=== PATIENT | male | born 1950 | race Caucasian/White ===

== ENCOUNTER 2022-03-29 07:51 | Outpatient (CLI) | payer MEDICARE, SELFPAY ==
--- NOTE | ~2022-03-29 | US_ITS ---
EXAMINATION: US aorta [facility] DATE: 03/29/2022 08:34 INDICATION: Abdominal aortic aneurysm screening. TECHNIQUE: Grayscale, color Doppler, and pulsed Doppler images of the aorta and common iliac arteries were obtained. COMPARISON: None. FINDINGS: The aorta demonstrates atherosclerosis. No aneurysm. The right common iliac artery is normal in calib er. The left common iliac artery is normal in caliber. IMPRESSION: 1. Aortic atherosclerosis. No aneurysm. Reviewed, dictated and finalized at location A. CTOR CAR OPERATOR
== END 2022-03-29 07:52 | disposition home or self-care (01) ==
PROVIDERS: PCP Family Medicine; Visit Provider Internal Medicine Cardiovascular Disease
DX: Z13.6 Encounter for screening for cardiovascular disorders (principal); I70.0 Atherosclerosis of aorta
CPT/HCPCS: 76706

== ENCOUNTER 2022-05-29 15:44 | Emergency (ER) | payer MEDICARE, SELFPAY ==
--- NOTE | ~2022-05-29 | XR_ITS ---
EXAMINATION: XR chest 2V DATE: 05/29/2022 16:15 INDICATION: Dizziness, fatigue and shoulder pain TECHNIQUE: PA and lateral views of the chest were obtained. COMPARISON: Chest radiograph dated 02/12/2017 FINDINGS: The lungs remain clear with no focal airspace opacities, pulmonary edema, pleural effusion or pneumot horax. The cardiomediastinal silhouette is normal. Median sternotomy wires and mediastinal surgical c lips are seen, likely from prior coronary artery bypass grafting. Mild anterior wedging of a couple l ower thoracic vertebral bodies. Mild thoracic spondylosis. IMPRESSION: 1. No acute cardiopulmonary disease. Reviewed, dictated and finalized at location B. DREN'S PROGRAM COORDINATOR
--- NOTE | ~2022-05-29 | CT_ITS ---
Non-contrast Head CT History: Dizziness COMPARISON: 02/12/2017 Technique: Axial non-contrast imaging of the brain was performed. Dose reduction technique was used on this scan by utilizing automated exposure control and iterative reconstruction technique. The dose -length product (DLP) was 605.33 mGy-cm. Findings: There is no evidence of intracranial hemorrhage, mass lesion, or acute infarct. Brain par enchyma appears normal. The ventricles and subarachnoid spaces are normal in size. The calvarium ap pears normal. The visualized paranasal sinuses and mastoid air cells are clear. Impression: No significant abnormality seen. Reviewed, dictated and finalized at location . ETING SERVICES REP Impression: No significant abnormality seen.
[2022-05-29 15:55] VITALS: BP 167/93; PULSE 74; RESP 16; TEMP 36.4; O2SAT 97
--- NOTE | 2022-05-29 15:56 | ECG_ITS ---
Measurements Intervals [place] Rate: 76 P: -75 ID: [id number] QRS: -52 QRSD: 101 T: 42 QT: 372 QTc: 419 Interpretive Statements ECTOPIC ATRIAL RHYTHM VENTRICULAR PREMATURE COMPLEX INFERIOR INFARCT, AGE INDETERMINATE EXTENSIVE ANTERIOR INFARCT, AGE INDETERMINATE ABNORMAL ECG NO PREVIOUS ECG AVAILABLE FOR COMPARISON Electronically Signed On 05-29-2022 16:08:33 BEAD STRINGER by Gerardo Harper D.O.
[2022-05-29 16:13] LABS: Basophils Absolute Auto 0.1 K/mm3 (0.0-0.1); Basophils Percent Auto 0.6 % (0.2-1.2); Eosinophils Absolute Auto 0.1 K/mm3 (0-0.3); Eosinophils Percent Auto 0.6 % (0-4.4); Hematocrit 44.7 % (42.0-52.0); Hemoglobin 15.3 g/dL (14.0-18.0); Immature Granulocyte Absolute 0.03 K/mm3 (0.00-0.031); Immature Granulocyte Percent A 0.3 % (0-0.5); Lymphocytes Absolute Auto 3.24 K/mm3 (0.9-3.2); Mean Corpuscular HGB Conc 34.2 g/dl (32-36); Mean Corpuscular Hemoglobin 29.6 pg (26-34); Mean Corpuscular Volume 86.5 fl (80-100); Mean Platelet Volume 9.6 fl (7.4-10.4); Monocytes Absolute Auto 0.6 K/mm3 (0.1-0.6); Monocytes Percent Auto 6.3 % (2.6-8.5); Neutrophils Absolute Auto 5.5 K/mm3 (1.3-6.7); Neutrophils Percent Auto 58.2 % (45.5-73.1); Platelet Count Result 203 k/mm3 (150-375); Red Blood Count 5.17 M/mm3 (4.6-6.20); Red Cell Distribution Width 13.8 % (11.5-14.5); White Blood Count 9.5 K/mm3 (4.5-10.0)
[2022-05-29 16:24] LABS: Alanine Aminotransferase 36 U/L (6-50); Albumin Level 4.8 g/dL (3.5-5.1); Alkaline Phosphatase 52 U/L (38-126); Anion Gap 6 mmol/L (8-16); Aspartate Amino Transferase 30 U/L (17-59); Bilirubin,Total 0.7 mg/dL (0.2-1.3); Blood Urea Nitrogen 17 mg/dL (9-20); Calcium 9.3 mg/dL (8.4-10.2); Carbon Dioxide 32 mmol/L (22-30); Chloride 97 mmol/L (98-107); Estimated CRCL calculation 82 ml/min; Estimated Glomerular Filt Rate > 60; Glucose 117 mg/dL (65-110); Lipase 36 U/L (23-300); Partial Thromboplastin Time 26.5 SECONDS (22.3-36.8); Potassium 3.7 mmol/L (3.4-5.0); Prothrombin Time 12.5 Seconds (11.1-14.7); Sodium 135 mmol/L (137-145)
[2022-05-29 16:36] LABS: Troponin I < 0.012 ng/mL (0.000-0.034)
[2022-05-29 21:04] VITALS: BP 136/75; PULSE 75; RESP 18; O2SAT 99
--- NOTE | 2022-05-29 21:06 | PC.NURSE ---
pt to the intake desk stating he feels like his blood sugar is low. pt pulled into triage and BS checked, 112. Pt eating cheez its
[2022-05-29 21:09] LABS: Glucose Point of Care 112 mg/dl (65-105)
[2022-05-29 22:39] LABS: Troponin I < 0.012 ng/mL (0.000-0.034)
[2022-05-29 23:21] VITALS: PULSE 70
[2022-05-29 23:24] VITALS: PULSE 71; RESP 14; O2SAT 100
--- NOTE | 2022-05-29 23:24 | ED.GENADULT ---
HPI - General Adult General Chief complaint: Unspecified Stated complaint: fatigue/htn/vertigo Time Seen by Provider: 05/29/22 23:17 History of Present Illness HPI narrative: Patient is a 71-year-old male here for evaluation of multiple medical complaints. Patient states that he has had generalized fatigue for the past 3 days. He also notes a rocking sensation when he closes his eyes, that he likens to being on a ship. He has had intermittent issues controlling his blood pressure, notes that his systolic was in the 150s today which prompted his ED evaluation, he tends to run in the 120s systolic. He denies any chest pain, shortness of breath, fevers or chills, unilateral weakness, visual changes, leg swelling. He does have a history of CAD status post CABG, follows with Dr. Cardozo. Related Data Allergies Allergy/AdvReac Type Severity Reaction Status Date / Time canagliflozin Allergy Unknown Verified 04/09/14 19:57 hydrochlorothiazide Allergy Unknown Verified 01/20/13 19:33 lisinopril Allergy Unknown Verified 01/20/13 15:13 Wlgyzgk-YNA-SzG Reductase Allergy Unknown Verified 01/20/13 15:12 Inhibitor [Fjkwepn-Ukw-Xiv Reductase Inhibitor] BUPROPION HCL Allergy Unknown Uncoded 02/12/17 13:32 Review of Systems Review of Systems: Gen: Reports generalized fatigue. Denies fevers or chills Eyes: Denies eye pain or visual change ENT: Reports dizziness. Denies congestion Respiratory: Denies shortness of breath or cough CV: Denies chest pain or palpitations GI: Denies abdominal pain nausea, emesis or diarrhea denies burning, urgency, frequency or hematuria Musculoskeletal: Denies back pain or muscle pain Neuro: Denies numbness, tingling, weakness or focal weakness Skin: Denies rash Except as documented, all other systems reviewed and negative PMFSH Family History Family History (Updated 08/11/16 @ 23:56 by DOCTOR UNKNOWN) Mother Patient's mother is in good health Sibling Patient's sister is in good health Father Cerebrovascular accident, Onset Age: 86 Family history of diabetes mellitus in first degree relative Patient's father is Social History Social History Smoking status: Never smoker Alcohol intake: never Exam Narrative: APPEARANCE: Well appearing, no pain in distress, well-nourished. Head: Normocephalic and atraumatic. EYES: PERRLA/EOMI, conjunctivae clear NOSE: No nasal drainage EARS: Cerumen impaction in bilateral TMs. External ear normal in appearance THROAT: Oropharynx is clear. Mucous membranes are moist. NECK: Supple. No adenopathy, no masses. RESPIRATORY: Airway patent, respirations nonlabored. Clear to auscultation bilaterally, no rales, rhonchi, wheezing. CARDIOVASCULAR: Regular rate and rhythm without murmurs, rubs, or gallops. ABDOMINAL: Normoactive bowel sounds. Soft, nontender, nondistended. No rebound tenderness or guarding. MUSCULOSKELETAL: Extremities are warm and well-perfused. Moves all extremities well. No edema. NEURO: Sxolkd-cg-miql normal. Rqli-zf-rxqq normal. No ataxia noted. Normal speech. No focal neurologic deficits. SKIN: Skin is warm and dry. No rashes. PSYCHIATRIC: Normal affect/mood.. Course Vital Signs Vital signs: Vital Signs Temperature 97.6 F 05/29/22 15:55 Pulse Rate 74 05/29/22 15:55 Respiratory Rate 16 05/29/22 15:55 Blood Pressure 167/93 H 05/29/22 15:55 Pulse Oximetry 97 05/29/22 15:55 Oxygen Delivery Room Air 05/29/22 15:55 Temperature 97.6 F 05/29/22 15:55 Pulse Rate 70 05/29/22 23:21 Respiratory Rate 18 05/29/22 21:04 Blood Pressure 136/75 05/29/22 21:04 Pulse Oximetry 99 05/29/22 21:04 Oxygen Delivery Room Air 05/29/22 15:55 Procedures Ear Wax Removal Both Ears: Ear Wax Removal Date: 05/30/22 Ear Wax Removal Time: 02:42 Cerumenolytic Used: other (irrigation) Results: Re-examined: some cerumen remains TM Examination: TM(
[2022-05-29 23:37] VITALS: PULSE 74; RESP 23; O2SAT 100
[2022-05-29 23:46] VITALS: PULSE 70; RESP 17; O2SAT 98
[2022-05-30] VITALS (14 sets, daily range): BP systolic 130–139; BP diastolic 83–102; PULSE 54–83; RESP 12–27; O2SAT 94–99
[2022-05-30 00:52] LABS: Troponin I < 0.012 ng/mL (0.000-0.034)
[2022-05-30] MEDS: MECLIZINE HCL 12.5 MG TABLET PO (00:57)
[2022-05-30 01:38] LABS: Influenza A QL RT-PCR Negative (Negative); Influenza B QL RT-PCR Negative (Negative); SARS-CoV-2 RNA PCR Negative
== END 2022-05-30 03:16 | disposition home or self-care (01) ==
PROVIDERS: Preventive Medicine Aerospace Medicine; Emergency Provider Physician Assistant; PCP Family Medicine
DX: H61.23 Impacted cerumen, bilateral (principal); Z20.822 Contact with and (suspected) exposure to COVID-19; I10 Essential (primary) hypertension; I25.10 Atherosclerotic heart disease of native coronary artery without angina pectoris; Z95.1 Presence of aortocoronary bypass graft; I49.3 Ventricular premature depolarization; R94.31 Abnormal electrocardiogram [ECG] [EKG]
CPT/HCPCS: 36415; 69209; 70450; 71046; 80053; 82948; 83690; 84484; 85025; 85610; 85730; 87636; 93005; 99284; A9270

== ENCOUNTER 2023-04-03 08:00 | Outpatient (CLI) | payer MEDICARE, SELFPAY ==
--- NOTE | ~2023-04-03 | US_ITS ---
US arterial ankle brachial ind INDICATION: Polyneuropathy TECHNIQUE: Segmental pressures and plethysmographic and Doppler waveforms of the brachial and lower e xtremity arteries were obtained. COMPARISON: None. FINDINGS: Right and left brachial artery pressures of 116 mm Hg and 108 mm Hg, respectively, are concordant (no rmal difference <= 30 mmHg). The right ankle-brachial index (JOSEPHINE) is 1.33 (normal >= 0.9-1.0). The right great toe-brachial index (TBI) is 0.47 (normal >= 0.60). The left JOSEPHINE is 1.25. The left TBI is 0.65. IMPRESSION: 1. Normal bilateral ankle-brachial indices. 2: Diminished right toe brachial index consistent with peripheral arterial disease. Reviewed, dictated and finalized at location L. MOLDER IMPRESSION: 1. Normal bilateral ankle-brachial indices. 2: Diminished right toe brachial index consistent with peripheral arterial dis ease.
== END 2023-04-03 08:01 | disposition home or self-care (01) ==
PROVIDERS: PCP Family Medicine; Visit Provider Nurse Practitioner Adult Health
DX: E11.40 Type 2 diabetes mellitus with diabetic neuropathy, unspecified (principal); G62.9 Polyneuropathy, unspecified; M79.89 Other specified soft tissue disorders
CPT/HCPCS: 93922

== ENCOUNTER 2023-06-20 13:13 | Emergency (ER) | payer MEDICARE, SELFPAY ==
[2023-06-20 13:25] VITALS: BP 114/99; PULSE 96; RESP 19; TEMP 36.6; O2SAT 99
[2023-06-20 13:27] VITALS: BP 114/99; PULSE 96; RESP 19; TEMP 36.6; O2SAT 99
--- NOTE | 2023-06-20 13:38 | ED.MALEGU ---
HPI - Male Genitourinary General Chief complaint: Urogenital-Male Stated complaint: UTI SYMPTOMS Time Seen by Provider: 06/20/23 13:30 Source: patient and RN notes reviewed Mode of arrival: ambulatory Limitations: no limitations History of Present Illness HPI Narrative: Patient presents today with a one-week history of itching at the tip of his penis. This has happened to him before and he had been instructed to use some Monistat in this area by his PCP. States he believes that this was improving, but 3 days ago he started experiencing some dysuria, that worsened yesterday along with some chills. Denies abdominal pain, back pain, hematuria, testicular pain. Related Data Home Medications Medication Instructions Recorded Confirmed amlodipine 10 mg-benazepril 20 mg 1 cap PO DAILY 06/20/23 06/20/23 capsule evolocumab 140 mg/mL subcutaneous 140 mg subcut DIRECTED 06/20/23 06/20/23 pen injector (Repatha SureClick) metformin 1,000 mg tablet 500 mg PO BID 06/20/23 06/20/23 tirzepatide 7.5 mg/0.5 mL 7.5 mg subcut DIRECTED 06/20/23 06/20/23 subcutaneous pen injector (Mounjaro) tramadol 50 mg tablet 50 mg PO DIRECTED 06/20/23 06/20/23 Allergies Allergy/AdvReac Type Severity Reaction Status Date / Time canagliflozin Allergy Mild Other Verified 06/20/23 13:26 hydrochlorothiazide Allergy Mild Other Verified 06/20/23 13:26 lisinopril Allergy Unknown Other Verified 06/20/23 13:26 Gvoafwp-CHU-WlN Reductase Allergy Unknown Other Verified 06/20/23 13:26 Inhibitor [Jtbsakf-Bgq-Rpo Reductase Inhibitor] BUPROPION HCL Allergy Unknown Other Uncoded 06/20/23 13:26 Review of Systems Review of Systems: CONSTITUTIONAL: Denies body aches, fever, or sweats.+ chills EYES: Denies visual changes, redness, or discharge. ENT: Denies rhinorrhea, congestion, sore throat, or otalgia. CARDIOVASCULAR: Denies chest pain, palpitations, or edema. RESPIRATORY: Denies cough or dyspnea. GASTROINTESTINAL: Denies abdominal pain, nausea, vomiting, or diarrhea. GENITOURINARY: Denies hematuria.+ dysuria SKIN: Denies rash, itching, or wounds. MUSCULOSKELETAL: Denies back pain, joint pain, or myalgia. NEUROLOGIC: Denies headache, numbness, tingling, or weakness. PSYCH: Denies depression or anxiety. [facility] Past Medical History Medical History (Updated 06/20/23 @ 13:42 by Khadijah Rubio, [facility], ) Diabetes High cholesterol Hypertension Family History Family History Mother Patient's mother is in good health Sibling Patient's sister is in good health Father Cerebrovascular accident, Onset Age: 86 Family history of diabetes mellitus in first degree relative Patient's father is Social History Social History Smoking status: Never smoker Alcohol intake: never Comments At time of signature, I have reviewed and agree with nursing past medical, surgical, social and family history unless otherwise noted. Please see nursing chart for further information. There is no relevant family history pertinent to the presenting complaint Exam Narrative: GENERAL: Well-appearing, well-nourished, and in no acute distress. HEAD: Normocephalic, atraumatic. EYES: EOMI. No redness or drainage. Conjunctivae normal. ENT: Mucous membranes pink and moist. Nares clear. NECK: Normal AROM. CHEST: No respiratory distress. Clear to auscultation. HEART: Regular rate and rhythm. No murmur appreciated. ABDOMEN: Soft, nontender, nondistended, normal active bowel sounds.-CVAT SKIN: Warm, dry, no rash. Capillary refill normal. NEURO: No focal deficits. Alert and oriented x3. Gait steady. PSYCH: Normal affect. No signs of depression or anxiety. Course Course Level of Care: Express Care Visit Vital Signs Vital signs: Vital Signs Temperature 97.8 F 06/20/23 13:25 Pulse Rate
== END 2023-06-20 13:41 | disposition home or self-care (01) ==
PROVIDERS: Emergency Provider Nurse Practitioner; PCP Family Medicine
DX: N39.0 Urinary tract infection, site not specified (principal); B96.20 Unspecified Escherichia coli [E. coli] as the cause of diseases classified elsewhere; E11.9 Type 2 diabetes mellitus without complications; Z79.84 Long term (current) use of oral hypoglycemic drugs; E78.00 Pure hypercholesterolemia, unspecified; I10 Essential (primary) hypertension
CPT/HCPCS: 81003; 87077; 87086; 87186; 99213; G0463

== ENCOUNTER 2023-07-04 12:13 | Emergency (ER) | payer MEDICARE, SELFPAY ==
[2023-07-04 12:21] VITALS: BP 114/80; PULSE 76; RESP 16; TEMP 35.8; O2SAT 99
--- NOTE | 2023-07-04 12:32 | ED.MALEGU ---
HPI - Male Genitourinary General Chief complaint: Urogenital-Male Stated complaint: Uti Symptoms Time Seen by Provider: 07/04/23 12:32 Source: patient Mode of arrival: ambulatory Limitations: no limitations History of Present Illness HPI Narrative: 72-year-old male presents with complaint of urinary frequency, urgency, dysuria for 1 day. Patient reports urinary itching for 3 days. Reports he had urinary itching with his last urinary tract infection. Denies rash concerning for yeast infection. Patient reports recent changes to his diabetes meds and thinks that this is what is causing urinary tract infections. Patient states the last times he was given Keflex and he does not think that it completely treated urinary tract infection. Patient requesting bactrim because states this worked well for him in the past. No abdominal or back pain. Afebrile. All systems reviewed and negative except as noted above. Related Data Home Medications Medication Instructions Recorded Confirmed amlodipine 10 mg-benazepril 20 mg 1 cap PO DAILY 06/20/23 07/04/23 capsule metformin 1,000 mg tablet 500 mg PO BID 06/20/23 07/04/23 tirzepatide 7.5 mg/0.5 mL 7.5 mg subcut DIRECTED 06/20/23 07/04/23 subcutaneous pen injector (Mounjaro) tramadol 50 mg tablet 50 mg PO DIRECTED 06/20/23 07/04/23 evolocumab 140 mg/mL subcutaneous mg subcut 07/04/23 07/04/23 pen injector (Repatha SureClick) Allergies Allergy/AdvReac Type Severity Reaction Status Date / Time canagliflozin Allergy Mild Other Verified 07/04/23 12:34 hydrochlorothiazide Allergy Mild Other Verified 07/04/23 12:34 lisinopril Allergy Unknown Other Verified 07/04/23 12:34 Blylskq-JUD-WuT Reductase Allergy Unknown Other Verified 07/04/23 12:34 Inhibitor [Npfxdhw-Dfs-Tpi Reductase Inhibitor] BUPROPION HCL Allergy Unknown Other Uncoded 07/04/23 12:34 Review of Systems Review of Systems: CONSTITUTIONAL: Denies fever, chills, or sweats. EYES: Denies visual changes, redness, or discharge. ENT: Denies rhinorrhea, congestion, sore throat, or otalgia. CARDIOVASCULAR: Denies chest pain, palpitations, or edema. RESPIRATORY: Denies cough or dyspnea. GASTROINTESTINAL: Denies abdominal pain, nausea, vomiting, or diarrhea. GENITOURINARY: Reports dysuria, frequency, urgency, itching. Denies hematuria. SKIN: Denies rash or itching. MUSCULOSKELETAL: Denies back pain, joint pain, or myalgia. NEUROLOGIC: Denies headache, numbness, or weakness. PSYCHIATRIC: Denies anxiety or depression. All other systems reviewed are negative, except as documented in HPI. [facility] Past Medical History Medical History (Updated 07/04/23 @ 12:45 by Kellee Bryan NP) Diabetes High cholesterol Hypertension Family History Family History Mother Patient's mother is in good health Sibling Patient's sister is in good health Father Cerebrovascular accident, Onset Age: 86 Family history of diabetes mellitus in first degree relative Patient's father is Social History Social History Smoking status: Never smoker Alcohol intake: never Comments At time of signature, agree with nursing past medical, surgical, social and family history. There is no relevant family history pertinent to the presenting complaint. Exam Narrative: GENERAL: This is a well-nourished, well-developed patient, in no apparent distress. HEAD: normocephalic, atraumatic. EYES: PERRL. Sclera clear/white. Vision is grossly intact. EARS: External ears normal NOSE: External nose normal NECK: Neck supple, non-tender without lymphadenopathy, masses or thyromegaly. CARDIOVASCULAR: Regular rate and rhythm without murmurs, gallops, or rubs. RESPIRATORY: Clear to auscultation. Breath sounds equal bilaterally. No wheezes, rales, or rhonchi. SKIN: warm, Dry, intact with
== END 2023-07-04 12:48 | disposition home or self-care (01) ==
PROVIDERS: Emergency Provider Nurse Practitioner Family; PCP Family Medicine
DX: N39.0 Urinary tract infection, site not specified (principal); B96.20 Unspecified Escherichia coli [E. coli] as the cause of diseases classified elsewhere; E11.9 Type 2 diabetes mellitus without complications; Z79.84 Long term (current) use of oral hypoglycemic drugs; E78.00 Pure hypercholesterolemia, unspecified; I10 Essential (primary) hypertension
CPT/HCPCS: 81003; 87077; 87086; 87088; 87186; 99213; G0463

== ENCOUNTER 2024-08-21 12:28 | Outpatient (CLI) | payer MEDICARE, SELFPAY ==
--- NOTE | ~2024-08-21 | XR_ITS ---
XR knee RT min 4V 08/21/2024 12:59 Indication: Knee pain Procedure: 4 views right knee Comparison: No prior studies for comparison. Findings: Osteoarthritis of the right knee. There is chondrocalcinosis. No significant joint effusion . No acute fracture. Impression: 1: Moderate tricompartment osteoarthritis with chondrocalcinosis. Reviewed, dictated and finalized at location B. Impression: 1: Moderate tricompartment osteoarthritis with chondrocalcinosis.
--- NOTE | ~2024-08-21 | XR_ITS ---
AP and lateral views of the bilateral hip Clinical history: Pain Findings: No acute fracture or dislocation is seen. Osseous alignment is anatomic. Bilateral hip and SI joint spaces are preserved. Soft tissues are unremarkable. Impression: No significant abnormality is seen. Reviewed, dictated and finalized at location . Impression: No significant abnormality is seen.
--- NOTE | ~2024-08-21 | XR_ITS ---
Left Knee Technique: AP, lateral, and sunrise views were obtained. Clinical History: Pain Findings: No fracture or dislocation is seen. Osseous alignment is anatomic. There is moderate to adv anced degenerative change of the lateral patellofemoral compartment. There is mild medial compartment degenerative change. Probable irregular loose body posteriorly measuring 1 cm in diameter.. Soft tis sues are otherwise unremarkable. Probable moderate joint effusion is seen. Impression: Advanced degenerative change of the lateral and patellofemoral compartments. Mild degenerative change of the medial compartment. 1 cm irregular loose body posteriorly. Probable moderate joint effusion. Reviewed, dictated and finalized at location . Impression: Advanced degenerative change of the lateral and patellofemoral compartments. Mi ld degenerative change of the medial compartment. 1 cm irregular loose body posteriorly. Probable moderate joint effusion.
== END 2024-08-21 12:29 | disposition home or self-care (01) ==
LOC: MICIMG 12:31
PROVIDERS: PCP Family Medicine; Visit Provider Registered Nurse
DX: M17.0 Bilateral primary osteoarthritis of knee (principal); M11.261 Other chondrocalcinosis, right knee; M23.42 Loose body in knee, left knee; M25.551 Pain in right hip; M25.552 Pain in left hip
CPT/HCPCS: 73521; 73564

== ENCOUNTER 2024-08-27 06:36 | Emergency (ER) | payer MEDICARE, SELFPAY ==
--- NOTE | ~2024-08-27 | XR_ITS ---
Clinical Indication: Weakness PA and lateral views of the chest: Comparison: 05/29/2022 Findings: The lungs are clear, without evidence of focal consolidation or pleural effusion. Cardiome diastinal silhouette is stable. Bones and soft tissues are unremarkable. Impression: Clear lungs. Reviewed, dictated and finalized at location . Impression: Clear lungs.
--- OUTSIDE RECORDS SUMMARY | 2024-08-27 06:38 | XMS_ITS | Referral Summary ---
Author Organization [facility] [address] [place] [address] [address] [place] [address] Care Team Providers Care Muleser Name Role Phone Edenilson Redd MD Primary Care Provider [phone] Encounters Date Type Department Care Team Description 08/04/2024 11:15 AM CDT Office Visit [facility] Cardiology [address] [facility] [address] [place] [address] Angelo Aburto MD Coronary artery disease involving creek coronary artery of creek heart without angina pectoris (Primary Dx); Mixed diabetic hyperlipidemia associated with type 2 diabetes mellitus (HCC); Hypertension associated with diabetes (HCC); History of coronary artery bypass surgery; Chronic ischemic heart disease; CAD S/P percutaneous coronary angioplasty from Last 3 Months Allergies Active Allergy Reactions Criticality Noted Date Comments Bupropion Colesevelam Lisinopril Mheabtw-Qoe-Mbq Reductase Inhibitors Vitamin B Complex No.6 Unknown Medications amlodipine-manda azepril (LOTREL) 10-20 mg per capsule Take one by mouth one time per day 90 3 7 Active insulin syringe-needle U-100 (ULTICARE) 1 mL 31 gauge x 5/16 syringe Use QID for insulin injections 360 3 0 Active metFORMIN (GLUCOPHAGE) 1,000 mg tablet TAKE 1 TABLET TWICE A DAY WITH MORNING AND EVENING MEALS 180 3 2 Active metOLazone (ZAROXOLYN) 5 mg tablet take 1 tablet by oral route every day 0 0 04/13/201 6 Active Additional Information Patient not taking.Reported on 08/04/2024 insulin glargine (LANTUS) 100 unit/mL injection Inject 75 units subcutaneously one time per day at bedtime 7 vial 3 7 Active evolocumab (REPATHA) syringe syringe Inject under the skin Every 2 weeks Active traMADol (ULTRAM) 50 mg tablet Take 1 tablet (50 mg total) by mouth every 6 (six) hours as needed for pain Active acetaminophen- aspirin-caffei ne (EXCEDRIN MIGRAINE) 250-250-65 mg per tablet Take 1 tablet by mouth every 6 (six) hours as needed Active ezetimibe (ZETIA) 10 mg tablet TAKE 1 TABLET BY MOUTH EVERY DAY 90 tablet 3 3 Active tirzepatide (MOUNJARO SUBQ) 4 Active carvediloL (Coreg) 12.5 mg tablet Take 1 tablet (12.5 mg total) by mouth 2 (two) times a day with meals 180 tablet 2 4 Active Active Problems Problem Noted Date Diagnosed Date Medication side effect 11/01/2022 CAD S/P percutaneous coronary angioplasty 2022 Morbid (severe) obesity due to excess calories 0 09/05/2021 Mixed diabetic hyperlipidemi a associated with type 2 diabetes mellitus 03/01/2021 Chronic fatigue 10/21/2018 Statin myopathy 04/18/2018 Anxiety attack 02/23/2017 Adverse effect of drug 03/01/2016 Overview (08/11/2016): Medication side effects, subsequent encounter Statin intolerance 03/01/2016 Overview (08/11/2016): Statin intolerance Type 2 diabetes mellitus wit h diabetic polyneuropathy, with long-term current use of insulin ([facility]) 08/18/2015 Overview (08/11/2016): DM type 2 with diabetic dyslipidemia Body mass index 40+ - severely obese 08/18/2015 Overview (08/11/2016): Morbid obesity with BMI of 40.0-44.9, adult Hypertension associated with diabetes 03/03/2015 Overview (08/11/2016): HTN (hypertension), benign History of coronary artery bypass surgery 2014 Overview (08/11/2016): S/P CABG (coronary artery bypass graft) Coronary artery disease invo lving creek coronary artery of creek heart without angina pectoris 03/03/2015 Overview (08/11/2016): Coronary artery disease involving creek coronary artery of creek heart with angina pectoris Migraine without aura and responsive to treatmen t 11/18/2013 Overview (08/11/2016): COMN MIGRNE WO NTRC MGRN Chronic ischemic heart disease 09/20/2013 Overview (08/09/2016): CHR ISCHEMIC HRT DIS NOS Depression 09/20/2013 Overview (08/09/2016): DEPRESSIVE DISORDER NEC Class 2 severe obesity due t o excess calories with serious comorbidity and body mass index (BMI) of 35.0 to 35.9 in adult 09/20/2013 Overview (08/09/2016): OBESITY NOS Seborrhea capitis 09/20/2013 Overview (08/10/2016): SEBORRHEA CAPITIS Diabetic neuropathy ([facility]) 09/20/2013 Overview (08/10/2016): NEUROPATHY IN DIABETES MIREYA on CPAP 09/20/2013 Overview (08/10/2016): OBSTRUCTIVE SLEEP APNEA Resolved Problems Problem Noted Date Diagnosed Date Resolved Date Hypotension due to drugs 11/01/2022 Abnormal stress test 06/23/2022 025 Overview (06/23/2022): Added automatically from request for surgery [id number] Screening for AAA (abdominal aortic aneurysm) 03/15/20 22 08/04/2024 Chest pain 03/03/2015 08/04/2024 Overview (08/11/2016): Other chest pain Dyslipidemia 03/03/2015 09/05/2021 Overview (08/11/2016): Dyslipidemia Angina pectoris 08/19/2014 08/04/2024 Overview (08/11/2016): Angina pectoris Pure hypercholesterolemia 09/20/2013 Overview (08/09/2016): PURE HYPERCHOLESTEROLEM Immunizations Immunization Administration Dates Next Due Influenza, Split 02/02/2011,01/25/2010 Influenza, Trivalent, IM (MDV) 01/28/2009,2007,01/14/2007 Influenza, Trivalent, Preser vative Free, Intramuscular 02/07/2012 Tdap 09/13/2010 ZOSTER LIVE 02/02/2011 Social History Tobacco Use Types Packs/Day Years Used Date Smoking Tobacco: Never Smokeless Tobacco: Never Tobacco Cessation:Counseling Given: Not Answered Alcohol Use Standard Drinks/Week Comments Yes 0 (1 standard drink = 0.6 oz pur e alcohol) Personal Safety Answer Date Recorded Getting School Help Needed Denies 06/30 Sex and Gender Information Value Date Recorded Sex Assigned at Not on file Legal Sex Male 12:31 PM CANDLE CUTTER Gender Identity Male 11/23/2019 5:31 AM CDT Sexual Orientation Straight 11/23/2019 5: 31 AM CDT Last Filed Vital Signs Vital Sign Reading Time Taken Comments Blood Pressure 120/68 08/04/2024 11:15 AM CDT Pulse 76 08/04/2024 11:15 AM CDT Temperature 36.8 C (98.3 F) 07/13/2022 9:00 AM CANDLE CUTTER Respiratory Rate 18 07/13/2022 9:00 AM CANDLE CUTTER Oxygen Saturation 97% 08/04/2024 11: 15 AM CDT Inhaled Oxygen Concentration - - Weight 106.3 kg (234 lb 4.8 oz) 025 11:15 AM CDT Height 177.8 cm (5' 10 ) 08/04/2024 11: 15 AM CDT Body Mass Index 33.62 08/04/2024 11:15 AM CDT Plan of Treatment Not on file Medical Devices Implanted Type Area Contract Post Office Clerk Device Identifier Shelf Expiration Date Model / Serial / Lot Key Ring Synergy Xd Monorail 3mm 12mm 144cm Delivery System 1 Access Port [id number] - [id number] Implanted:Qty: 1 on 07/12/2022 by Angelo Aburto MD at [facility] Key Ring 02/06/2024 [id number] / / [id number] [employer] Angio-Seal Vip 6fr Closere Device [id number] - [id number] Implanted:Qty: 1 on 07/12/2022 by Angelo Aburto MD at [facility] [employer] 02/03/2023 [id number] / / [id number] Procedures Procedure Name Priority Date/Time Associated Diagnosis Comments POCT LIPID PANEL Routine 08/04/2024 11:3 8 AM CDT Mixed diabetic hyperlipidemia associated with type 2 diabetes mellitus (HCC) EGFR Routine 07/13/2022 7:31 AM CANDLE CUTTER COLONOSCOPY 10/18/2012 12:00 AM CDT from Last 3 Months or Most Recently Relevant to Health Maintenance Results * POCT lipid panel (08/04/2024 11:38 AM CDT) Cholesterol, POC 131 mg/dL HDL, POC 42 mg/dL Triglycerides, POC 70 mg/dL LDL Cholesterol POC 75 mg/dL Chol/HDL Ratio, POC 1.8 Non-HDL Cholesterol, POC 89 mg/dL Cholesterol Total, POC 131 mg/dL Capillary blood 08/04/2024 1 1:38 AM CDT Angelo Aburto MD POINT OF CARE TEST O RDERABLES Final Result * eGFR (07/13/2022 7:31 AM CANDLE CUTTER) eGFR 96 mL/min/1. 73 m2 JUAN JIANG Comment: Interpretive Data Reference Interval Normal >/= 90 mL/min/1.73m2 Mildly decreased* 60 - 89 mL/min/1.73m2 Mildly to moderately decreased 45 - 59 mL/min/1.73m2 Moderately to severely decreased 30 - 44 mL/min/1.73m2 Severely decreased 15 - 29 mL/min/1.73m2 Kidney Failure < 15 mL/min/1.73m2 *Relative to young adult level Estimated glomerular filtration rate is determined by the 2020 CKD-EPI equation recommended by the National Kidney Foundation (A Unifying Approach to GFR Estimation: Recommendations of the NKF-ASK Task Force on Reassessing the Inclusion of Race in Diagnosing Kidney Disease, JASN 2020). The CKD-EPI equation should not be used for patients with unstable renal function and has not been validated in children and those over 70. Current interpretive data was last reviewed 2021. Blood 07/13/2022 7:31 AM CANDLE CUTTER 07/13/2022 7:46 AM CANDLE CUTTER us Angelo Aburto MD LAB BLOOD ORDERABLES Final Result Performing Organization Address City/State/[facility] Co ms Phone Number JUAN [address] [facility] [place] [address] * COLONOSCOPY (10/18/2012 12:00 AM CDT) Anatomical Region Laterality Modality Other Narrative 10/18/2012 12:00 AM CDT Ordered by an unspecified provider. Procedure Note Provider, MD Dianna - 10/18/2012 12:00 AM CDT PROCEDURE REPORT Patient: ALIN NOYOLA Account: [id number] Room No: : 1950 Patient Type: SDS Attend.: Figueroa Jennings M.D. Admit Date: 10/18/2012 Dict.: Figueroa Jennings M.D. Disch. Date: NAME OF PROCEDURE: COLONOSCOPY. 10/18/2012. REFERRED BY: Dr. Logan. PREVIOUS PROCEDURE: Colonoscopy with adenomatous polyps removed. X-RAYS: None. HISTORY AND PHYSICAL EXAMINATION: The patient is a 62-year-old whitemale referred back now for repeat colorectal screening and follow-up ofcolonic polyps. He denies any changes in his health and he is otherwise doing clinically well. Physical examination today is that of a slightly obese white male in noacute distress. The patient is nonicteric. The lungs were clear. The heartwas regular. GI was soft and supple. The extremities showed no calf pain,cords, or edema. PREPROCEDURE DIAGNOSIS 1. Screening colonoscopy in a 62-year-old male. 2. History of colonic polyps. PHYSICIAN: Figueroa Jennings M.D. INSTRUMENT USED: Olympus video endoscope. MEDICATIONS: Per anesthesia. FINDINGS: The colonoscope was introduced rectum left lateral positionand passed to the cecum. The patient tolerated the procedure well. There wereno complications. On withdrawal of the colonoscope, the mucosa appearednormal with a normal vascular pattern. No polyps or masses were noted in thececum, right, transverse or left colons. In the rectosigmoid, several small hyperplastic appearing polyps were noted. These were simply picked up, cauterized, and destroyed. The remainder of the rectosigmoid and rectumwere normal. Retroflex view of the internal anal area showed moderateinternal hemorrhoidal tissue. The perianal exam showed no perianal disease and norectal masses. The prostate was normal for age. COMPLICATIONS: None. POSTPROCEDURE DIAGNOSIS 1. Normal screening colonoscopy to the cecum without evidence ofrecurrent adenomatous polyps. 2. Withdrawal time of 6 minutes and 45 seconds with good preparation. POSTPROCEDURE ORDERS 1. Postsedation instructions. 2. High fiber diet. 3. Repeat colon in five years due to history of polyps. 4. Follow-up with Dr. Logan. 5. Follow-up in my office will otherwise be on a p.r.n. basis. Figueroa Jennings M.D. MA/ochoa TD: 10/18/2012 11:23 CC: Kel Logan M.D. Authenticated by Figueroa Jennings MD On 10/21/2012 08:14:00 AM us Historical Provider ENDOSCOPY PROCEDURES Anju l Result from Last 3 Months or Most Recently Relevant to Health Maintenance Insurance [employer] MEDICARE HMO [address] [place] [id number] [facility] MEDICARE O Advance Directives For more information, please contact: [phone] * Full Code (Latest Code Status on File) Date Activated Date Inactivated Comments 07/12/2022 10:30 AM 07/13/2022 4:56 PM Care Teams Muleser Relationship Specialty Start Date End Date Edenilson Redd MD PCP - General 09/13/10
--- OUTSIDE RECORDS SUMMARY | 2024-08-27 06:38 | XMS_ITS | Clinical Summary ---
Author Organization [facility] [address] Address [address] [place] [address] Care Team Providers Care Tuber Operator Name Role Phone Edenilson Redd MD Primary Care Provider [phone]- [phone] Allergies Active Allergy Reactions Criticality Noted Date Comments Bupropion Colesevelam Lisinopril Cipecta-Bvd-Ugw Reductase Inhibitors Vitamin B Complex No.6 Unknown [...] by oral route every day 0 0 6 Active Additional Information Patient not taking.Reported [...] polyneuropathy, with long-term current use of insulin ([facility]) 08/18/2015 Overview (08/11/2016): DM type 2 with diabetic dyslipidemia Body mass index 40+ - severely obese 08/18/2015 Overview (08/11/2016): Morbid obesity with BMI of 40.0-44.9, adult Hypertension associated with diabetes 03/03/2015 Overview (08/11/2016): HTN (hypertension), benign History of coronary artery bypass surgery 2014 Overview (08/11/2016): S/P CABG (coronary artery bypass graft) Coronary artery disease invo lving [place] coronary artery of [place] heart without angina pectoris 03/03/2015 Overview (08/11/2016): Coronary artery disease involving [place] coronary artery of [place] heart with angina pectoris Migraine without aura [...] 09/20/2013 Overview (08/10/2016): SEBORRHEA CAPITIS Diabetic neuropathy ([facility]) 09/20/2013 Overview (08/10/2016): NEUROPATHY IN DIABETES MIREYA on CPAP 09/20/2013 Overview (08/10/2016): OBSTRUCTIVE SLEEP APNEA Resolved Problems Problem Noted Date Diagnosed Date Resolved Date Hypotension due to drugs 11/01/2022 Abnormal stress test 06/23/2022 025 Overview (06/23/2022): Added automatically from request for surgery [id number] Screening for AAA (abdominal aortic aneurysm) 03/15/20 22 08/04/2024 Chest pain 03/03/2015 08/04/2024 Overview (08/11/2016): Other chest pain Dyslipidemia 03/03/2015 09/05/2021 Overview (08/11/2016): Dyslipidemia Angina pectoris 08/19/2014 08/04/2024 Overview (08/11/2016): Angina pectoris Pure hypercholesterolemia 09/20/2013 Overview (08/09/2016): PURE HYPERCHOLESTEROLEM Encounters Date Type Department Care Team Description 08/04/2024 11:15 AM CDT Office Visit [facility] Cardiology [address] [place] [address] Angelo Aburto MD Coronary artery disease involving [place] coronary artery of [place] heart without angina pectoris (Primary Dx); Mixed diabetic hyperlipidemia associated with type 2 diabetes mellitus (HCC); Hypertension associated with diabetes (HCC); History of coronary artery bypass surgery; Chronic ischemic heart disease; CAD S/P percutaneous coronary angioplasty from Last 3 Months Immunizations Immunization Administration Dates Next Due Influenza, Split 02/02/2011,01/25/2010 Influenza, Trivalent, IM (MDV) 01/28/2009,2007,01/14/2007 Influenza, Trivalent, Preser vative Free, Intramuscular 02/07/2012 Tdap 09/13/2010 ZOSTER LIVE 02/02/2011 Surgical History Surgery Date Site/Laterality Comments OTHER SURGICAL HISTORY 05/07/1999 - 05/06/2000 coronary artery disease: cabg - 3 vessels OTHER SURGICAL HISTORY 05/07/1986 - 05/06/1987 sinus disease: sinus surgery OTHER SURGICAL HISTORY 05/07/2006 - 05/06/2007 erectile dysfunction: penile implant OTHER SURGICAL HISTORY 05/07/2006 - 05/06/2007 epididymal cyst: Orchiectomy CORONARY ARTERY BYPASS GRAFT Coronary Artery Bypass Graft CATARACT EXTRACTION 07-05-17, 08-09-17 Bilateral Medical History Medical History Date Comments Cardiovascular disease Coronary Artery Disease Hx Other Medical sinus disease Hx Other Medical erectile dysfun ction Hx Other Medical epididymal cyst Hypertension Hypertension Hx Other Medical Diabetes Type I I Adiposity Obesity Cataract 07/05/2017 Diabetes mellitus (HCC) 1996 Migraines 1966 Heart disease 02/05/2000 Sleep apnea 11/2002 Family History Medical History Relation Name Comments Diabetes Father Alberto Noyola Diabetes type II Father Alberto Noyola Diabetes -Type II; /Diabetes mellitus type 2; Hypertension Father Alberto Noyola Hypertension; Stroke Father Alberto Noyola Stroke; Cervical cancer Mother Sandie Noyola Cancer -cer vical; Hearing loss Mother Sandie Noyola Early Sister 1 Connie (Nemours) Olsen Heart attack Sister 1 Connie (Nemours) Olsen Stroke Sister 1 Connie (Nemours[address]; Coronary artery disease Sister 2 Johana nary artery disease; Relation Name Status Comments Father Alberto Noyola Mother Sandie Noyola Sister 1 Connie (Dennys) Pretty Sister 2 Social History Tobacco Use Types Packs/Day Years [...] on file Legal Sex Male 12:31 PM SHOW WORKER Gender Identity Male 11/23/2019 5:31 AM CDT Sexual Orientation Straight 11/23/2019 5: 31 AM CDT Obstetrics History Last Filed Vital Signs Vital Sign Reading Time Taken Comments Blood Pressure 120/68 08/04/2024 11:15 AM CDT Pulse 76 08/04/2024 11:15 AM CDT Temperature 36.8 C (98.3 F) 07/13/2022 9:00 AM SHOW WORKER Respiratory Rate 18 07/13/2022 9:00 AM SHOW WORKER Oxygen Saturation 97% 08/04/2024 11: 15 AM CDT Inhaled Oxygen Concentration - - Weight 106.3 kg (234 lb 4.8 oz) 025 11:15 AM CDT Height 177.8 cm (5' 10 ) 08/04/2024 11: 15 AM CDT Body Mass Index 33.62 08/04/2024 11:15 AM CDT Plan of Treatment Health Maintenance Due Date Last Done Comments Albumin Creatinine Ratio, Urine 1950 Depression Screening 1950 Hemoglobin A1C 1950 Hepatitis C Screening 1950 Dilated Eye Exam 1950 Foot Exam 1950 Hepatitis B Screening 1968 Pneumococcal vaccine 65+ (1 of 2 - PCV) 1969 Zoster Vaccine (2 of 3) 03/30/2011 02/02/2011 Well Visit 65+ 10/03/2015 DTaP/Tdap/Td Vaccine (2 - Td or Tdap) 09/13/2020 09/13/2010 Colon Cancer Screening-Colonoscopy 10/18/2022 10/18/2012 Fall Risk Assessment 07/14/2023 07/13/2022 eGFR 07/14/2023 07/13/2022, 03/06/2022, 06/24/2022 Influenza Vaccine (#1) 2024 0, 02/07/2012, 02/02/2011, Additional history exists Lipid Panel 08/04/2025 08/04/2024, 01/06, 01/26/2023, Additional history exists Colon Cancer Screening-CT Colonography Discontinued 10/18/2012 Colon Cancer Screening-DNA Stool Discontinued 10/19/19 Colon Cancer Screening-FIT Discontinued 10/18/2012 Colon Cancer Screening-Sigmoidoscopy Discontinued 10/18/2012 Medical Devices Implanted Type Area Rug Setter Velvet Device Identifier Shelf Expiration Date Model / Serial / Lot [employer] Synergy Xd Monorail 3mm 12mm 144cm Delivery System 1 Access Port [id number] - [id number] Implanted:Qty: 1 on 07/12/2022 by Angelo Aburto MD at [facility] [employer] 02/06/2024 [id number] / / [id number] [employer]ark Angio-Seal Vip 6fr Closere Device [id number] - [id number] Implanted:Qty: 1 on 07/12/2022 by Angelo Aburto MD at [facility] [employer] 02/03/2023 [id number] / / [id number] Procedures Procedure Name Priority Date/Time Associated Diagnosis Comments POCT LIPID PANEL Routine 08/04/2024 11:3 8 AM CDT Mixed diabetic hyperlipidemia associated with type 2 diabetes mellitus (HCC) EGFR Routine 07/13/2022 7:31 AM SHOW WORKER COLONOSCOPY 10/18/2012 12:00 AM CDT from Last [...] Final Result * eGFR (07/13/2022 7:31 AM SHOW WORKER) eGFR 96 mL/min/1. 73 m2 JUAN JIANG [...] last reviewed 2021. Blood 07/13/2022 7:31 AM SHOW WORKER 07/13/2022 7:46 AM SHOW WORKER Angelo Aburto MD LAB BLOOD ORDERABLES Final Result JUAN [address] [address] Department [place] [address] * COLONOSCOPY (10/18/2012 12:00 AM CDT) Anatomical Region Laterality Modality Other Narrative 10/18/2012 12:00 AM CDT Ordered by an unspecified provider. Procedure Note ProviderDianna MD - 10/18/2012 12:00 AM CDT PROCEDURE REPORT Patient: ALIN NOYOLA Account: [id number] Room No: : 1950 Patient Type: SDS [...] on a p.r.n. basis. Figueroa Jennings M.D. GILBERT/ochoa TD: 10/18/2012 11:23 CC: Kel Logan M.D. Authenticated by Figueroa Jennings MD On 10/21/2012 08:14:00 AM us Historical Provider ENDOSCOPY PROCEDURES Anju l Result from Last 3 Months or Most Recently Relevant to Health Maintenance Insurance [employer] MEDICARE HMO Advance Directives For more information, please contact: [phone] * Full Code (Latest Code Status on File) Date Activated Date Inactivated Comments 07/12/2022 10:30 AM 07/13/2022 4:56 PM Care Teams Tuber Operator Relationship Specialty Start Date End Date Edenilson Redd MD PCP - General 09/13/10
--- OUTSIDE RECORDS SUMMARY | 2024-08-27 06:38 | XMS_ITS | Continuity of Care Document ---
Author Organization [facility] Address [address] [facility] [address] [place] [address] Phone Care Team Providers Care Leaf Fat Scraper Name Role Phone Don Ruiz Unavailable Unavailable Procedures Procedure Date Eye Exam, New Patient Refraction Advance Directives Directive Yes / No Effective Date File Name No Information Encounters Encounter Description Practice Location Reason(s) For Visit Diagnoses Date Provider Providers Copied on Encounter [facility], [address], [place], [place], [id number], [place] tel:[phone] [facility] No Information 2-201 0 Sara Ochoa. [address] [facility] [address], [address], [place]. tel:[phone] Family History Family Member Type Diagnosis Age At Onset No Information Payers Payer name Insurance type Covered democrat ID Ernie pearson(s) [facility] CI [id number] Social History Type Description Quantity Date Captured Comments Sex Male Smoking Status No Information Chief Complaint And Reason For Visit No Information Reason For Referral Reason For Referral No Information History Of Present Illness Encounter Date Complaint History Of Prese nt Illness No Information Functional Status Date Functional Assessmen t No Information Instructions Date Instruction Additional Infor mation No Information Assessments Type Assessment Date No Information Patient Care Teams Name Effective Dates (start - stop) Status Members No Information
[2024-08-27 06:41] VITALS: BP 136/94; PULSE 78; RESP 19; TEMP 36.4; O2SAT 99
[2024-08-27 06:46] LABS: Glucose Point of Care 191 mg/dl (65-105)
[2024-08-27 06:48] VITALS: PULSE 75
[2024-08-27 06:50] VITALS: BP 136/94; PULSE 80; RESP 20; O2SAT 99
--- NOTE | 2024-08-27 07:23 | ED_ITS ---
HPI - General Adult General Chief complaint: Unspecified Stated complaint: shaking, toungue is thick, dont feel right Time Seen by Provider: 08/27/24 07:20 Source: patient History of Present Illness HPI narrative: 73 years old white male came from home by private car because of shaking. Patient report went to sleep at 9:00 p.m. last night, woke up at 4:30 a.m. shaking all over sometime alternating between right side and left side. Patient had yard work yesterday. He denies any pain, fever, chills, nausea, vomiting, chest pain, shortness of breath, headache or focal neuro deficit. History of diabetes hypertension hyperlipidemia CABG and peripheral neuropathy. Currently on baby aspirin once a day. Patient does not smoke or drink or use drugs Related Data Home Medications ?Medication ?Instructions ?Recorded ?Confirmed ?Last Taken ?Type amlodipine 10 mg-benazepril 20 mg 1 cap PO DAILY 06/20/23 07/04/23 Unknown History capsule metformin 1,000 mg tablet 500 mg PO BID 06/20/23 07/04/23 Unknown History tirzepatide 7.5 mg/0.5 mL 7.5 mg subcut DIRECTED 06/20/23 07/04/23 Unknown History subcutaneous pen injector (Mounjaro) tramadol 50 mg tablet 50 mg PO DIRECTED 06/20/23 07/04/23 Unknown History evolocumab 140 mg/mL subcutaneous mg subcut 07/04/23 07/04/23 Unknown History pen injector (Repatha SureClick) Allergies Allergy/AdvReac Type Severity Reaction Status Date / Time canagliflozin Allergy Mild Other Verified 07/04/23 12:34 hydrochlorothiazide Allergy Mild Other Verified 07/04/23 12:34 lisinopril Allergy Unknown Other Verified 07/04/23 12:34 Qyfdpwq-LVI-MtS Reductase Allergy Unknown Other Verified 07/04/23 12:34 Inhibitor (Wkjxrui-Saz-Jqg Reductase Inhibitor) BUPROPION HCL Allergy Unknown Other Uncoded 07/04/23 12:34 Review of Systems 2 Review of Systems: All systems reviewed & are unremarkable except as noted in HPI and below PMFSH Past Medical History Medical History Hypertension High cholesterol Diabetes Family History Family History Mother Patient's mother is in good health Sibling Patient's sister is in good health Father Cerebrovascular accident, Onset Age: 86 Family history of diabetes mellitus in first degree relative Patient's father is Social History Social History Smoking status: Never smoker Alcohol intake: never Exam 2 Narrative: General appearance: Well-developed, well-nourished shaking all over Skin: Normal color Head: Normocephalic, nontraumatic Eyes: Clear conjunctiva ENT: Oropharynx normal, ears normal, nose normal Neck: Supple, nontender Chest and respiratory: Airway patent, no respiratory distress, no accessory muscle use Heart: Regular rate/rhythm Abdomen: Soft, nontender, no organomegaly, quiet bowel sounds Vascular: Normal peripheral pulses, normal capillary refill. Musculoskeletal: Normal range of motion, nontender back Neurologic: Alert and oriented ?3, RHIC SYSTEMS SAFETY ENGINEER is normal as tested, no gross motor deficit Course Vital Signs Vital signs: Vital Signs Temperature 36.4 C L 08/27/24 06:41 Pulse Rate 78 08/27/24 06:41 Respiratory Rate 19 08/27/24 06:41 Blood Pressure 136/94 H 08/27/24 06:41 Pulse Oximetry 99 08/27/24 06:41 Oxygen Delivery Room Air 08/27/24 06:41 Temperature 36.4 C L 08/27/24 06:41 Pulse Rate 83 08/27/24 07:44 Respiratory Rate 18 08/27/24 07:44 Blood Pressure 135/76 08/27/24 07:44 Pulse Oximetry 98 08/27/24 07:44 Oxygen Delivery Room Air 08/27/24 06:41 Medical Decision Making [facility] Narrative Medical decision making narrative: Patient woke up at 4:30 a.m. with shaking Vital signs are stable Physical examination showing involuntary shaking upper and lower extremities Differential diagnosis include anxiety related symptoms Thyroid disorder, electrolyte imbalance, dehydration Blood workup today includes CBC, CMP, TSH, CPK showed CPK 279 Urinalysis showed no evidence of infection Chest x-ray showed no acute abnormalities EKG on arrival showed sinus or ectopic atrial rhythm, low-voltage QRS voltage in precordial leads, abnormal EKG, no previous EKG available for comfort comparison Patient's symptom resolved, currently is asymptomatic and ready to go home. The pt was discharged to home.the pt,s condition upon discharge was fair,education was provided to the pt in reference to the final impression,discharge study results,treatment,prognosis and need for follow up . Differential Diagnosis Differential Diagnosis: As above Vital Signs Vital Signs: Vital Signs Temperature 36.4 C L 08/27/24 06:41 Pulse Rate 78 08/27/24 06:41 Respiratory Rate 19 08/27/24 06:41 Blood Pressure 136/94 H 08/27/24 06:41 Pulse Oximetry 99 08/27/24 06:41 Oxygen Delivery Room Air 08/27/24 06:41 Temperature 36.4 C L 08/27/24 06:41 Pulse Rate 83 08/27/24 07:44 Respiratory Rate 18 08/27/24 07:44 Blood Pressure 135/76 08/27/24 07:44 Pulse Oximetry 98 08/27/24 07:44 Oxygen Delivery Room Air 08/27/24 06:41 Lab Data 08/27/24 07:29 08/27/24 07:29 Labs: Lab Results 08/27/24 08/27/24 08/27/24 Range/Units 06:43 07:29 07:35 WBC 8.2 (4.5-10.0) K/mm3 RBC 4.85 (4.6-6.20) M/mm3 Hgb 14.0 (14.0-18.0) g/dL Hct 42.5 (42.0-52.0) % MCV 87.6 (80-100) fl MCH 28.9 (26-34) pg MCHC 32.9 (32-36) g/dl RDW 13.6 (11.5-14.5) % Plt Count 211 (150-375) k/mm3 MPV 10.5 H (7.4-10.4) fl Immature Gran % (Auto) 0.2 (0-0.5) % Neut % (Auto) 62.3 (45.5-73.1) % Lymph % (Auto) 27.5 (18.3-44.2) % [place] % (Auto) 8.5 (2.6-8.5) % Eos % (Auto) 0.9 (0-4.4) % Baso % (Auto) 0.6 (0.2-1.2) % Lymph # (Auto) 2.24 (0.9-3.2) K/mm3 [place] # (Auto) 0.7 H (0.1-0.6) K/mm3 Eos # (Auto) 0.1 (0-0.3) K/mm3 Baso # (Auto) 0.1 (0.0-0.1) K/mm3 Abs Immat Gran (auto) 0.02 (0.00-0.031) K/mm3 Absolute Neuts (auto) 5.1 (1.3-6.7) K/mm3 Absolute Nucleated RBC 0.000 (0.0-0.012) K/mm3 Nucleated RBC % 0.0 (0.0-0.2) % Sodium 139 (137-145) mmol/L Potassium 3.7 (3.4-5.0) mmol/L Chloride 101 (98-107) mmol/L Carbon Dioxide 27 (22-30) mmol/L Anion Gap 11 (4-12) mmol/L BUN 22 H (9-20) mg/dL Creatinine 0.65 L (0.7-1.3) mg/dL Estim Creat Clear Calc 105 ml/min Estimated GFR > 60 (59 - ) Glucose 183 H (65-110) mg/dL POC Capillary Glucose 191 H 205 H (65-105) mg/dl Calcium 8.9 (8.4-10.2) mg/dL Total Bilirubin 0.7 (0.2-1.3) mg/dL AST 30 (17-59) U/L ALT 30 (6-50) U/L Alkaline Phosphatase 57 (38-126) U/L Total Creatine Kinase 279 H (55-170) U/L Total Protein 7.0 (6.3-8.2) g/dL Albumin 4.7 (3.5-5.1) g/dL TSH Pending Urine Color (Yellow) Urine Appearance (Clear) Urine pH (5.0-9.0) Ur Specific [place] (1.001-1.035) Urine Protein (Negative) mg/dL Urine Glucose (UA) (Negative) mg/dL Urine Ketones (Negative) mg/dL Ur Blood (Man) (Negative) Urine Nitrate (Negative) Urine Bilirubin (Negative) Urine Urobilinogen (<2.0) mg/dL Leukocyte Esterase Rfl (Negative) ROSIO/UL 08/27/24 Range/Units 08:16 WBC (4.5-10.0) K/mm3 RBC (4.6-6.20) M/mm3 Hgb (14.0-18.0) g/dL Hct (42.0-52.0) % MCV (80-100) fl MCH (26-34) pg MCHC (32-36) g/dl RDW (11.5-14.5) % Plt Count (150-375) k/mm3 MPV (7.4-10.4) fl Immature Gran % (Auto) (0-0.5) % Neut % (Auto) (45.5-73.1) % Lymph % (Auto) (18.3-44.2) % [place] % (Auto) (2.6-8.5) % Eos % (Auto) (0-4.4) % Baso % (Auto) (0.2-1.2) % Lymph # (Auto) (0.9-3.2) K/mm3 [place] # (Auto) (0.1-0.6) K/mm3 Eos # (Auto) (0-0.3) K/mm3 Baso # (Auto) (0.0-0.1) K/mm3 Abs Immat Gran (auto) (0.00-0.031) K/mm3 Absolute Neuts (auto) (1.3-6.7) K/mm3 Absolute Nucleated RBC (0.0-0.012) K/mm3 Nucleated RBC % (0.0-0.2) % Sodium (137-145) mmol/L Potassium (3.4-5.0) mmol/L Chloride (98-107) mmol/L Carbon Dioxide (22-30) mmol/L Anion Gap (4-12) mmol/L BUN (9-20) mg/dL Creatinine (0.7-1.3) mg/dL Estim Creat Clear Calc ml/min Estimated GFR (59 - ) Glucose (65-110) mg/dL POC Capillary Glucose (65-105) mg/dl Calcium (8.4-10.2) mg/dL Total Bilirubin (0.2-1.3) mg/dL AST (17-59) U/L ALT (6-50) U/L Alkaline Phosphatase (38-126) U/L Total Creatine Kinase (55-170) U/L Total Protein (6.3-8.2) g/dL Albumin (3.5-5.1) g/dL TSH Urine Color Yellow (Yellow) Urine Appearance Clear (Clear) Urine pH 6.5 (5.0-9.0) Ur Specific [place] 1.021 (1.001-1.035) Urine Protein Negative (Negative) mg/dL Urine Glucose (UA) 1+ H (Negative) mg/dL Urine Ketones Negative (Negative) mg/dL Ur Blood (Man) Negative (Negative) Urine Nitrate Negative (Negative) Urine Bilirubin Negative (Negative) Urine Urobilinogen 0.2 (<2.0) mg/dL Leukocyte Esterase Rfl Negative (Negative) ROSIO/UL Imaging Data Radiologist's impression: Impressions Chest X-Ray 08/27/24 08:10 Impression: Clear lungs. ECG Data EKG #1: Attestation: I personally reviewed and interpreted this ECG as follows: ECG completion date: 08/27/24 Prior ECG tracings: not available for review Interpretation: Normal sinus rhythm or ectopic atrial rhythm at 77 beats per minute, low QRS voltage in precordial leads, right ventricular conduction delay, inferior infarction, age indeterminate, anterior lateral infarct, age indeterminate, nonspecific ST T-wave abnormality Discharge Plan Discharge Clinical Impression: Episode of shaking Patient Disposition: Home Condition: Improved Instructions: Tremors (ED) Patient Language: Prydeinig Prescriptions: No Action tramadol 50 mg tablet 50 mg PO DIRECTED metformin 1,000 mg tablet 500 mg PO BID amlodipine-benazepril 10-20 mg capsule 1 cap PO DAILY Mounjaro 7.5 mg/0.5 mL pen injector 7.5 mg SUBCUT DIRECTED Repatha SureClick 140 mg/mL pen injector SUBCUT sulfamethoxazole-trimethoprim [Bactrim DS] 800-160 mg tablet 1 tablet PO Q12H 10 Days Qty: 20 0RF fluconazole 150 mg tablet 150 mg PO ONCE 1 Days Qty: 1 0RF Follow-up/Referrals: Edenilson Redd MD [Primary Care Provider] -
--- NOTE | 2024-08-27 07:24 | ECG_ITS ---
Test Date: 2024-08-27 07:35:26 Measurements Intervals [place] Rate: 77 P: -60 KS: 184 QRS: -43 QRSD: 83 T: 1 QT: 357 QTc: 406 Interpretive Statements SINUS OR ECTOPIC ATRIAL RHYTHM LOW QRS VOLTAGE IN PRECORDIAL LEADS POSSIBLE RIGHT VENTRICULAR CONDUCTION DELAY [RSR (QR) IN V1/V2] INFERIOR INFARCT, AGE INDETERMINATE ANTEROLATERAL INFARCT, AGE INDETERMINATE BORDERLINE ST-T WAVE ABNORMALITY- HIGH LATERAL LEADS BASELINE ARTIFACT- I, II, III, AVR, AVL, AVF, V1-V6 ABNORMAL ECG No previous ECG available for comparison Electronically Signed On 08-27-2024 07:52:07 CDT by Gerardo Harper D.O.
[2024-08-27 07:34] LABS: Basophils Absolute Auto 0.1 K/mm3 (0.0-0.1); Basophils Percent Auto 0.6 % (0.2-1.2); Eosinophils Absolute Auto 0.1 K/mm3 (0-0.3); Eosinophils Percent Auto 0.9 % (0-4.4); Hematocrit 42.5 % (42.0-52.0); Immature Granulocyte Absolute 0.02 K/mm3 (0.00-0.031); Immature Granulocyte Percent A 0.2 % (0-0.5); Lymphocytes Absolute Auto 2.24 K/mm3 (0.9-3.2); Lymphocytes Percent Auto 27.5 % (18.3-44.2); Mean Corpuscular HGB Conc 32.9 g/dl (32-36); Mean Corpuscular Hemoglobin 28.9 pg (26-34); Mean Corpuscular Volume 87.6 fl (80-100); Mean Platelet Volume 10.5 fl (7.4-10.4); Monocytes Absolute Auto 0.7 K/mm3 (0.1-0.6); Monocytes Percent Auto 8.5 % (2.6-8.5); Neutrophils Absolute Auto 5.1 K/mm3 (1.3-6.7); Neutrophils Percent Auto 62.3 % (45.5-73.1); Platelet Count Result 211 k/mm3 (150-375); Red Blood Count 4.85 M/mm3 (4.6-6.20); Red Cell Distribution Width 13.6 % (11.5-14.5); White Blood Count 8.2 K/mm3 (4.5-10.0)
[2024-08-27 07:39] LABS: Glucose Point of Care 205 mg/dl (65-105)
[2024-08-27 07:44] VITALS: BP 135/76; PULSE 83; RESP 18; O2SAT 98
[2024-08-27 07:47] LABS: Alanine Aminotransferase 30 U/L (6-50); Albumin Level 4.7 g/dL (3.5-5.1); Alkaline Phosphatase 57 U/L (38-126); Anion Gap 11 mmol/L (4-12); Aspartate Amino Transferase 30 U/L (17-59); Bilirubin,Total 0.7 mg/dL (0.2-1.3); Blood Urea Nitrogen 22 mg/dL (9-20); Calcium 8.9 mg/dL (8.4-10.2); Carbon Dioxide 27 mmol/L (22-30); Chloride 101 mmol/L (98-107); Estimated CRCL calculation 105 ml/min; Estimated Glomerular Filt Rate > 60; Glucose 183 mg/dL (65-110); Potassium 3.7 mmol/L (3.4-5.0); Sodium 139 mmol/L (137-145)
[2024-08-27 08:12] LABS: Creatine Kinase 279 U/L (55-170)
[2024-08-27 08:22] LABS: Add Urine Microscopic? NO; Appearance Urine Clear (Clear); Bilirubin Urine Negative (Negative); Blood Urine Negative (Negative); Color Urine Yellow (Yellow); Glucose Urine UA 1+ mg/dL (Negative); Ketones Urine Negative (Negative); Leukocyte Esterase Ur Negative LEU/UL (Negative); Nitrate Urine Negative (Negative); Protein Urine Negative (Negative); Specific Grav Ur 1.021 (1.001-1.035); Urobilinogen Urine 0.2 mg/dL (<2.0); pH Urine 6.5 (5.0-9.0)
--- OUTSIDE RECORDS SUMMARY | 2024-08-27 08:22 | XMS_ITS | Clinical Summary ---
Author Organization [facility] [address] Address [address] [place] [address] Care Team Providers Care Sawmill Relief Worker Name Role Phone Edenilson Redd MD Primary Care Provider [phone] Allergies Active Allergy Reactions Criticality Noted Date Comments Bupropion Colesevelam Lisinopril Xpazkuo-Sur-Owj Reductase Inhibitors Vitamin B Complex No.6 Unknown [...] polyneuropathy, with long-term current use of insulin ([facility]) 08/18/2015 Overview (08/11/2016): DM type 2 with diabetic dyslipidemia Body mass index 40+ - severely obese 08/18/2015 Overview (08/11/2016): Morbid obesity with BMI of 40.0-44.9, adult Hypertension associated with diabetes 03/03/2015 Overview (08/11/2016): HTN (hypertension), benign History of coronary artery bypass surgery 2014 Overview (08/11/2016): S/P CABG (coronary artery bypass graft) Coronary artery disease invo lving [place] coronary artery of [place] heart without angina pectoris 03/03/2015 Overview (08/11/2016): Coronary artery disease involving [place] coronary artery of [place] heart with angina pectoris Migraine without aura [...] 09/20/2013 Overview (08/10/2016): SEBORRHEA CAPITIS Diabetic neuropathy ([facility]) 09/20/2013 Overview (08/10/2016): NEUROPATHY IN DIABETES MIREYA on CPAP 09/20/2013 Overview (08/10/2016): OBSTRUCTIVE SLEEP APNEA Resolved Problems Problem Noted Date Diagnosed Date Resolved Date Hypotension due to drugs 11/01/2022 Abnormal stress test 06/23/2022 025 Overview (06/23/2022): Added automatically from request for surgery [id number] Screening for AAA (abdominal aortic aneurysm) 03/15/20 22 08/04/2024 Chest pain 03/03/2015 08/04/2024 Overview (08/11/2016): Other chest pain Dyslipidemia 03/03/2015 09/05/2021 Overview (08/11/2016): Dyslipidemia Angina pectoris 08/19/2014 08/04/2024 Overview (08/11/2016): Angina pectoris Pure hypercholesterolemia 09/20/2013 Overview (08/09/2016): PURE HYPERCHOLESTEROLEM Encounters Date Type Department Care Team Description 08/04/2024 11:15 AM CDT Office Visit [facility] Cardiology [address] [place] [address] Angelo Aburto MD Coronary artery disease involving [place] coronary artery of [place] heart without angina pectoris (Primary Dx); Mixed [...] Mother Sandie Noyola Early Sister 1 Connie ([place] Olsen Heart attack Sister 1 Connie ([place] Olsen Stroke Sister 1 Connie ([place] Olsen Str kole; Coronary artery disease Sister [...] on file Legal Sex Male 12:31 PM 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 Gender Identity Male 11/23/2019 5:31 AM CDT Sexual Orientation Straight 11/23/2019 5: 31 AM CDT Obstetrics History Last Filed Vital Signs Vital Sign Reading Time Taken Comments Blood Pressure 120/68 08/04/2024 11:15 AM CDT Pulse 76 08/04/2024 11:15 AM CDT Temperature 36.8 C (98.3 F) 07/13/2022 9:00 AM 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 Respiratory Rate 18 07/13/2022 9:00 AM 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 Oxygen Saturation 97% 08/04/2024 11: 15 AM [...] Discontinued 10/18/2012 Medical Devices Implanted Type Area Bilingual Nanny Device Identifier Shelf Expiration Date Model / Serial / Lot Brandnew IO Synergy Xd Monorail 3mm 12mm 144cm Delivery System 1 Access Port [id number] - [id number] Implanted:Qty: 1 on 07/12/2022 by Angelo Aburto MD at [facility] [employer] 02/06/2024 [id number] / / [id number] Signpost Angio-Seal Vip 6fr Closere Device [id number] - [id number] Implanted:Qty: 1 on 07/12/2022 by Angelo Aburto MD at [facility] [employer] 02/03/2023 [id number] / / [id number] Procedures Procedure Name Priority Date/Time Associated Diagnosis Comments POCT LIPID PANEL Routine 08/04/2024 11:3 8 AM CDT Mixed diabetic hyperlipidemia associated with type 2 diabetes mellitus (HCC) EGFR Routine 07/13/2022 7:31 AM 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 COLONOSCOPY 10/18/2012 12:00 AM CDT from Last [...] Final Result * eGFR (07/13/2022 7:31 AM 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) eGFR 96 mL/min/1. 73 m2 JUAN JIANG [...] last reviewed 2021. Blood 07/13/2022 7:31 AM 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 07/13/2022 7:46 AM 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 Angelo Aburto MD LAB BLOOD ORDERABLES Final Result JUAN [address] Department [place] [address] * COLONOSCOPY (10/18/2012 12:00 AM CDT) Anatomical Region Laterality Modality Other Narrative 10/18/2012 12:00 AM CDT Ordered by an unspecified provider. Procedure Note ProviderDianna MD - 10/18/2012 12:00 AM CDT PROCEDURE REPORT Patient: ALIN NOYOLA Account: [id number] Room No: : 1950 Patient Type: SDS [...] Most Recently Relevant to Health Maintenance Insurance [employer] MEDICARE HMO Advance Directives For more information, please contact: [phone] * Full Code (Latest Code Status on File) Date Activated Date Inactivated Comments 07/12/2022 10:30 AM 07/13/2022 4:56 PM Care Teams Sawmill Relief Worker Relationship Specialty Start Date End Date Edenilson Redd MD PCP - General 09/13/10
--- OUTSIDE RECORDS SUMMARY | 2024-08-27 08:22 | XMS_ITS | Continuity of Care Document ---
Author Organization [facility] Address [address] [facility] [address] [place] [address] Phone Care Team Providers Care Nut Culler Name Role Phone Don Ruiz Unavailable Unavailable Procedures Procedure Date Eye Exam, New Patient Refraction Advance Directives Directive Yes / No Effective Date File Name No Information Encounters Encounter Description Practice Location Reason(s) For Visit Diagnoses Date Provider Providers Copied on Encounter [facility], [address], [place], [place], [id number], [place] tel:[phone] [facility] No Information 2-[address] 0 Sara Ochoa. [address] [place] [address], [place], [address], [place]. tel:[phone] Family History Family Member Type Diagnosis Age At Onset No Information Payers Payer name Insurance type Covered libertarian ID Ernie pearson(s) [facility] CI [id number] Social History Type Description Quantity Date Captured [...]
--- OUTSIDE RECORDS SUMMARY | 2024-08-27 08:22 | XMS_ITS | Referral Summary ---
Author Organization [facility] [address] [place] [address] [address] [place] [address] Care Team Providers Care Candy Spreader Helper Name Role Phone Edenilson Redd MD Primary Care Provider [phone] Encounters Date Type Department Care Team Description 08/04/2024 11:15 AM CDT Office Visit [facility] Cardiology [address] [facility] [address] [place] [address] Angelo Aubrto MD Coronary artery disease involving [place] coronary artery of [place] heart without angina pectoris (Primary Dx); Mixed diabetic hyperlipidemia associated with type 2 diabetes mellitus (HCC); Hypertension associated with diabetes (HCC); History of coronary artery bypass surgery; Chronic ischemic heart disease; CAD S/P percutaneous coronary angioplasty from Last 3 Months Allergies Active Allergy Reactions Criticality Noted Date Comments Bupropion Colesevelam Lisinopril Jqbmkgd-Dqr-Yfq Reductase Inhibitors Vitamin B Complex No.6 Unknown [...] polyneuropathy, with long-term current use of insulin ([facility]) 08/18/2015 Overview (08/11/2016): DM type 2 with diabetic dyslipidemia Body mass index 40+ - severely obese 08/18/2015 Overview (08/11/2016): Morbid obesity with BMI of 40.0-44.9, adult Hypertension associated with diabetes 03/03/2015 Overview (08/11/2016): HTN (hypertension), benign History of coronary artery bypass surgery 2014 Overview (08/11/2016): S/P CABG (coronary artery bypass graft) Coronary artery disease invo lving [place] coronary artery of [place] heart without angina pectoris 03/03/2015 Overview (08/11/2016): Coronary artery disease involving [place] coronary artery of [place] heart with angina pectoris Migraine without aura [...] 09/20/2013 Overview (08/10/2016): SEBORRHEA CAPITIS Diabetic neuropathy ([facility]) 09/20/2013 Overview (08/10/2016): NEUROPATHY IN DIABETES MIREYA on CPAP 09/20/2013 Overview (08/10/2016): OBSTRUCTIVE SLEEP APNEA Resolved Problems Problem Noted Date Diagnosed Date Resolved Date Hypotension due to drugs 11/01/2022 Abnormal stress test 06/23/2022 025 Overview (06/23/2022): Added automatically from request for surgery [id number] Screening for AAA (abdominal aortic aneurysm) 03/15/20 [...] on file Legal Sex Male 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 Gender Identity Male 11/23/2019 5:31 AM CDT Sexual Orientation Straight 11/23/2019 5: 31 AM CDT Last Filed Vital Signs Vital Sign Reading Time Taken Comments Blood Pressure 120/68 08/04/2024 11:15 AM CDT Pulse 76 08/04/2024 11:15 AM CDT Temperature 36.8 C (98.3 F) 07/13/2022 9:00 AM 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 Respiratory Rate 18 07/13/2022 9:00 AM 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 Oxygen Saturation 97% 08/04/2024 11: 15 AM CDT Inhaled Oxygen Concentration - - Weight 106.3 kg (234 lb 4.8 oz) 025 11:15 AM CDT Height 177.8 cm (5' 10 ) 08/04/2024 11: 15 AM CDT Body Mass Index 33.62 08/04/2024 11:15 AM CDT Plan of Treatment Not on file Medical Devices Implanted Type Area Communications Senior Associate Device Identifier Shelf Expiration Date Model / Serial / Lot Itegria Synergy Xd Monorail 3mm 12mm 144cm Delivery System 1 Access Port [id number] - [id number] Implanted:Qty: 1 on 07/12/2022 by Angelo Aburto MD at [facility] [employer] 02/06/2024 [id number] / / [id number] Wattblock Angio-Seal Vip 6fr Closere Device [id number] - [id number] Implanted:Qty: 1 on 07/12/2022 by Angelo Aburto MD at [facility] [email or web address] English 02/03/2023 [id number] / / [id number] Procedures Procedure Name Priority Date/Time Associated Diagnosis Comments POCT LIPID PANEL Routine 08/04/2024 11:3 8 AM CDT Mixed diabetic hyperlipidemia associated with type 2 diabetes mellitus (HCC) EGFR Routine 07/13/2022 7:31 AM 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 COLONOSCOPY 10/18/2012 12:00 AM CDT from Last [...] Final Result * eGFR (07/13/2022 7:31 AM 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) eGFR 96 mL/min/1. 73 m2 JUAN JIANG [...] last reviewed 2021. Blood 07/13/2022 7:31 AM 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 07/13/2022 7:46 AM 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 us Angelo Aburto MD LAB BLOOD ORDERABLES Final Result Performing Organization Address City/State/[facility] [place] Phone Number JUAN [address] [facility] Department [place] [address] * COLONOSCOPY (10/18/2012 12:00 AM CDT) Anatomical Region Laterality Modality Other Narrative 10/18/2012 12:00 AM CDT Ordered by an unspecified provider. Procedure Note Provider, MD Dianna - 10/18/2012 12:00 AM CDT PROCEDURE REPORT Patient: ALIN NOYOLA Account: [id number] Room No: : 1950 Patient Type: SDS [...] will otherwise be on a p.r.n. basis. Fgiueroa Jennings M.D. MA/[place] TD: 10/18/2012 11:23 CC: Kel Logan M.D. Authenticated by Figueroa Jennings MD On 10/21/2012 08:14:00 AM us Historical Provider ENDOSCOPY PROCEDURES Anju l Result from Last 3 Months or Most Recently Relevant to Health Maintenance Insurance [employer] MEDICARE HMO [facility] [address] [place] [id number] MEDICARE O Advance Directives For more information, please contact: [phone] * Full Code (Latest Code Status on File) Date Activated Date Inactivated Comments 07/12/2022 10:30 AM 07/13/2022 4:56 PM Care Teams Candy Spreader Helper Relationship Specialty Start Date End Date Edenilson Redd MD PCP - General 09/13/10
[2024-08-27 09:22] VITALS: BP 131/75; PULSE 77; RESP 20; O2SAT 96
== END 2024-08-27 09:24 | disposition home or self-care (01) ==
PROVIDERS: Emergency Provider Emergency Medicine; PCP Family Medicine
DX: R25.9 Unspecified abnormal involuntary movements (principal); R94.31 Abnormal electrocardiogram [ECG] [EKG]; I10 Essential (primary) hypertension; E78.5 Hyperlipidemia, unspecified; E11.9 Type 2 diabetes mellitus without complications; Z79.84 Long term (current) use of oral hypoglycemic drugs
CPT/HCPCS: 36415; 71046; 80053; 81003; 82550; 82948; 84443; 85025; 93005; 99284